=== PATIENT | male | born 1985 | race Caucasian/White ===

== ENCOUNTER 2017-04-25 20:49 | Emergency (ER) | payer SELFPAY ==
[2017-04-26] MEDS ORDERED: XYLOCAINE 1% 20 mL INFILTRATI ONE (02:31)
[2017-04-26] MEDS ORDERED: BACTRIM DS PO ONE (03:46)
--- NOTE | 2017-04-26 03:49 | Emergency Department Report ---
HPI - General Chief Complaint: Skin/Abscess/Foreign Body Time Seen by Provider: 04/26/17 02:20 - HPI HPI: This is a 31-year-old Afro-Indian male presents to the emergency department with complaint of a 2 to three-day history of some swelling to the right side of the jaw that he says started off as a "hair bump." His girlfriend made a small incision and tried to squeeze "the infection out" and says that there was a moderate amount of pus that came out but then it got large again and hard and they thought it needed to be seen by a physician. He denies any fever, nausea, vomiting. He denies any past medical history. He has not taken anything for his symptoms prior to presentation. No recent travel or sick contacts at home. ED Past Medical Hx - Past Medical History Previous Medical History?: No - Surgical History Past Surgical History?: No - Social History Smoking Status: Current Every Day Smoker Substance Use Type: None - Medications Home Medications: Home Medications Medication Instructions Recorded Confirmed Last Taken Type HYDROcodone/APAP 5-325 [[place] 1 each PO Q6HR PRN #10 tablet 09/13/16 Unknown Rx 5/325] Ondansetron [Zofran Odt] 4 mg PO Q6H PRN #10 tab.rapdis 09/13/16 Unknown Rx Sulfamethoxazole/Trimethoprim 1 each PO BID #14 tablet 04/26/17 Unknown Rx [Bactrim DS TAB] ED Review of Systems ROS: Stated complaint: RT JAW PAIN Other details as noted in HPI Comment: All other systems reviewed and negative Constitutional: denies: chills, fever Eyes: denies: eye pain, eye discharge, vision change ENT: denies: ear pain, throat pain Respiratory: denies: cough, shortness of breath, wheezing Cardiovascular: denies: chest pain, palpitations Gastrointestinal: denies: abdominal pain, nausea, diarrhea Genitourinary: denies: urgency, dysuria Musculoskeletal: denies: back pain, joint swelling, arthralgia Skin: lesions. denies: rash Neurological: denies: headache, weakness, paresthesias Physical Exam - Physical Exam Vital Signs: Vital Signs 04/25/17 21:29 Temperature 98.2 F Pulse Rate 82 Respiratory 16 Rate Blood Pressure 111/69 O2 Sat by Pulse 98 Oximetry Physical Exam: GENERAL: The patient is well-developed well-nourished. HEENT: Normocephalic. Atraumatic. Extraocular motions are intact. Patient has moist mucous membranes. Oropharynx is clear. NECK: Supple. Trachea is midline. CHEST/LUNGS: Clear to auscultation. There is no respiratory distress noted. HEART/CARDIOVASCULAR: Regular. There is no tachycardia. There is no gallop rub or murmur. ABDOMEN: Abdomen is soft, nontender. Patient has normal bowel sounds. There is no abdominal distention. SKIN: There is a area to the right lower jaw, just lateral to the lip, that is about 3 cm in diameter, circular, raised from the skin. The parameter is indurated but the central area appears more fluctuant. There is no erythema or warmth. No current bleeding, weeping or drainage. NEURO: The patient is awake, alert, and oriented. The patient is cooperative. The patient has no focal neurologic deficits. The patient has normal speech. MUSCULOSKELETAL: There is no tenderness or deformity. There is no limitation range of motion. There is no evidence of acute injury. ED Course Vital Signs 04/25/17 21:29 Temperature 98.2 F Pulse Rate 82 Respiratory 16 Rate Blood Pressure 111/69 O2 Sat by Pulse 98 Oximetry - I & D Right Face Type of Procedure: Simple Blade Size: 11 I & D Procedure: betadine prep, sterile drapes applied, sterile dressing applied Progress: There is an abscess to the right side of the face just lateral to the mouth is about 3 cm in diameter, circular, raised with an indurated outer [place] and fluctuant center. About 1-2 mL of 1% lidocaine without epinephrine was injected into what appears to be an abscess. After this a 1 cm incision was made in the middle. There was about 1 mL or less of purulent discharge as well as some mild blood. Total blood loss was less than 5 mL but probably closer to 1 mL. There was not enough space for iodine gauze packing. It was covered with sterile gauze. ED Medical Decision Making - Medical Decision Making Small abscess to the right side of the face. Incision and drainage done with a small amount of pus and a small amount of blood but it is now smaller after the I&D and some manual breaking up loculations. He is afebrile and the vital signs are stable throughout his ED course. He was given a dose of Bactrim here and will go home on a 1 week course as well. We discussed using warm compresses. He will be given a referral for primary care. He will return to the ER with any worsening of symptoms or any acute distress. - Differential Diagnosis abscess, cyst, boil, cellulitis Critical Care Time: No Critical care attestation.: If time is entered above; I have spent that time in minutes in the direct care of this critically ill patient, excluding procedure time. ED Disposition Clinical Impression: Facial abscess Disposition: TO HOME OR SELFCARE Is pt being admited?: No Condition: Stable Instructions: Abscess (ED) Additional Instructions: Use a warm compress, not hot, against the abscess to try and express as much infection is possible. Take the antibiotics as prescribed. The area should be cleaned with soap and water and then Dry. Return to the emergency department with any worsening of your symptoms or any acute distress. Prescriptions: Sulfamethoxazole/Trimethoprim [Bactrim DS TAB] 1 each PO BID #14 tablet Referrals: RENAY MUÑOZ MD [Primary Care Provider] - 3-5 Days EDILIA SHEPARD MD [Staff Physician] - 3-5 Days [facility] [Outside] - 3-5 Days Time of Disposition: 03:51
[2017-04-26 04:17] VITALS: BP 112/71
== END 2017-04-26 04:13 | disposition home or self-care (01) ==
LOC: ED 20:49
DX: L02.01 Cutaneous abscess of face (principal); F17.200 Nicotine dependence, unspecified, uncomplicated